=== PATIENT | female | born 1990 ===

== ENCOUNTER 2021-12-02 10:04 | Inpatient (IN) | payer SELFPAY ==
--- NOTE | 2021-12-02 13:55 | Ultrasound Report ---
Limited OB ultrasound OB biophysical profile INDICATION: Evaluate and well-being FINDINGS: Single live intrauterine in cephalic position. MARGARET measures 4.2 cm which is sligh tly decreased. Biophysical profile 8 out of 8. heart rate 135. IMPRESSION: Normal biophysical profile measuring 8 out of 8. Normal heart rate. MARGARET measures 4.2 cm. Signer Name: Erik Miller MD Signed: 12/02/2021 1:50 PM Workstation Name: [id number]
--- NOTE | 2021-12-02 13:55 | Ultrasound Report ---
Limited OB ultrasound OB biophysical profile INDICATION: Evaluate and well-being FINDINGS: Single live intrauterine in cephalic position. MARGARET measures 4.2 cm which is sligh tly decreased. Biophysical profile 8 out of 8. heart rate 135. IMPRESSION: Normal biophysical profile measuring 8 out of 8. Normal heart rate. MARGARET measures 4.2 cm. Signer Name: Erik Miller MD Signed: 12/02/2021 1:50 PM Workstation Name: [id number]
[2021-12-02] MEDS ORDERED: LIDOCAINE (2%) 20 MG/1 ML VIAL 20 ML MDV INFILTRATI ONE (14:08)
[2021-12-02] MEDS ORDERED: OXYTOCIN 10 UNIT/1 ML INJ IM PRN (14:08)
[2021-12-02] MEDS ORDERED: miSOPROStol 200 MCG TAB PR PRN (14:08)
[2021-12-02] MEDS ORDERED: TERBUTALINE 1 MG/1 ML INJ SUB-Q PRN (14:08)
[2021-12-02] MEDS ORDERED: IBUPROFEN 200 MG TAB PO PRN (14:11)
[2021-12-02] MEDS ORDERED: LACTATED RINGERS 1,000 ML IV SCH (14:15)
--- NOTE | 2021-12-02 14:26 | History and Physical Report ---
History of Present Illness Date of examination: 12/02/21 Date of admission: 12/02/2021 Chief complaint: CTX History of present illness: care at [facility]. course complicated by Low BMI and Marginal Placenta Previa. Past History Past Medical History: other (Anxiety) Past Surgical History: no surgical history Family/Genetic History: other (kidney Dx: Father) Social history: no significant social history - Obstetrical History Expected Date of Delivery: 11/27/21 Actual Gestation: 40 Week(s) 5 Day(s) : 2 Spontaneous Abortions: 1 Medications and Allergies Allergies Allergy/AdvReac Type Severity Reaction Status Date / Time nitrofurantoin Allergy Rash Verified 12/02/21 11:45 [From Macrobid] Active Meds: Active Medications Acetaminophen (Acetaminophen 325 Mg Tab) 650 mg PO Q4H PRN PRN Reason: Pain, Mild (1-3) Butorphanol Tartrate (Butorphanol 2 Mg/1 Ml Inj) 1 mg IV Q2H PRN PRN Reason: Pain, Moderate(4-6) LABOR PAIN Butorphanol Tartrate (Butorphanol 2 Mg/1 Ml Inj) 2 mg IV Q2H PRN PRN Reason: Pain , Severe (7-10) Dinoprostone (Dinoprostone 10 Mg Vag Supp) 10 mg VG ONCE ONE Stop: 12/02/21 15:01 Ephedrine Sulfate (Ephedrine Sulfate 50 Mg/1 Ml Inj) 10 mg IV Q2M PRN PRN Reason: Hypotension Lactated Ringer's (Lactated Ringers) 1,000 mls @ 125 mls/hr IV DIRECT NEHA Oxytocin/Sodium Chloride (Pitocin/Ns 30 Unit/500ml) 30 units in 500 mls @ 40 mls/hr IV TITR NEHA; Protocol Ibuprofen (Ibuprofen 200 Mg Tab) 200 mg PO Q4H PRN PRN Reason: Pain, Mild (1-3) Mineral Oil (Mineral Oil 30 Ml Oral Liqd) 30 ml PO QHS PRN PRN Reason: Constipation Misoprostol (Misoprostol 200 Mcg Tab) 800 mcg SC ONCE PRN PRN Reason: Uterine Bleeding Naloxone HCl (Naloxone 0.4 Mg/1 Ml Inj) 0.1 mg IV Q2MIN PRN PRN Reason: Res Rate </= 8 or 02 SAT < 92% Ondansetron HCl (Ondansetron 4 Mg/2 Ml Inj) 4 mg IV Q8H PRN PRN Reason: Nausea And Vomiting Oxytocin (Oxytocin 10 Unit/1 Ml Inj) 10 unit IM ONCE PRN PRN Reason: Uterine Bleeding Terbutaline Sulfate (Terbutaline 1 Mg/1 Ml Inj) 0.25 mg SUB-Q ONCE PRN PRN Reason: Hyperstimulation/Hypertonicity Review of Systems All systems: negative - Vital Signs Vital signs: Vital Signs Pulse BP Pulse Ox 96 H 111/76 100 12/02/21 10:24 12/02/21 10:24 12/02/21 10:24 Temp Pulse Resp BP Pulse Ox 98.5 F 94 H 16 111/76 100 12/02/21 10:25 12/02/21 14:04 12/02/21 10:25 12/02/21 10:25 12/02/21 14:04 - Physical Exam Breasts: Positive: normal Cardiovascular: Regular rate Lungs: Positive: Clear to auscultation, Normal air movement Abdomen: Positive: normal appearance, soft, normal bowel sounds Genitourinary (Female): Positive: normal external genitalia, normal perenium Vagina: Positive: normal moisture Uterus: Positive: enlarged Anus/Rectum: Positive: normal perianal skin - Obstetrical FHR: category 1 Uterine Contraction Monitor Mode: External Cervical Dilatation: 1 (tx; Intact) Cervical Effacement Percentage: 40 station: -3 Uterine Contraction Pattern: Regular Uterine Tone Measurement Phase: Resting Uterine Contraction Intensity: Moderate Results All other labs normal. Assessment and Plan A: IUP @ 40 5/7 Weeks Category I Tracing Oligohydramnios (4.7) r/o Placenta Previa GBS Negative P: Follow Routine Admission Orders Ultrasound for placenta location; if Previa is resolved may proceed with Cervidil Induction
[2021-12-02 14:33] LABS: Hematocrit 39.6 % (30.3-42.9); Hemoglobin 13.5 gm/dl (10.1-14.3); Mean Corpuscular HGB Conc 34 % (30-34); Mean Corpuscular Volume 91 fl (79-97); Platelet Count 177 K/mm3 (140-440); Red Blood Count 4.34 M/mm3 (3.65-5.03); Red Cell Distribution Width 14.7 % (13.2-15.2)
[2021-12-02] MEDS ORDERED: ONDANSETRON 4 MG/2 ML INJ IV PRN (15:00)
[2021-12-02] MEDS ORDERED: NALOXONE 0.4 MG/1 ML INJ IV PRN (15:00)
[2021-12-02] MEDS ORDERED: BUTORPHANOL 2 MG/1 ML INJ IV PRN ×2 (15:00)
[2021-12-02] MEDS ORDERED: ePHEDrine SULFATE 50 MG/1 ML INJ IV PRN (15:00)
[2021-12-02] MEDS ORDERED: DINOPROSTONE 10 MG VAG SUPP VG ONE (15:00)
[2021-12-02] MEDS ORDERED: OXYTOCIN DRIP 30 UNITS/500 ML BAG IV SCH (15:00)
[2021-12-02] MEDS ORDERED: MINERAL OIL 30 ML ORAL LIQD PO PRN (22:00)
--- NOTE | 2021-12-03 03:59 | Ultrasound Report ---
US OB limited INDICATION / CLINICAL INFORMATION: PLACENTA LOCATION COMPARISON: Biophysical profile 12/02/2021. TECHNIQUE: Using a transcutaneous probe, multiple grayscale, color Doppler, and spectral Doppler imag es of the uterus and fetus were captured and stored. FINDINGS: Estimation of gestational age based on LMP is 40 weeks 5 days. A single cephalic fetus is present with heart rate of 138 bpm. An anterior grade 2 placenta is demonstrated. No ultrasound abnormality of the placenta with placenta l margin is demonstrated on provided images. IMPRESSION: 1. Anterior placenta no acute pathology. Signer Name: Gama Pelayo II, MD Signed: 12/03/2021 3:55 AM Workstation Name: [id number]
[2021-12-03] MEDS ORDERED: OXYTOCIN DRIP 30 UNITS/500 ML BAG IV SCH ×2 (08:46→11:19)
[2021-12-03] MEDS ORDERED: LIDOCAINE (2%) 20 MG/1 ML VIAL 20 ML MDV INFILTRATI ONE (09:47)
[2021-12-03] MEDS ORDERED: fentaNYL-BUPIV 2 MCG/ML-0.125% 200 MCG/100 ML BAG EPIDURAL ONE (09:52)
[2021-12-03] MEDS ORDERED: NALOXONE 0.4 MG/1 ML INJ IV PRN (10:16)
--- NOTE | 2021-12-03 10:19 | Anesthesia Day of Surgery ---
Anesthesia Day of Surgery - Day of Surgery Patient Examined: Yes Patient H&P Reviewed: Yes Patient is NPO: Yes Beta Blockers: No Cardiac Clearance: No Pulmonary Clearance: No
--- NOTE | 2021-12-03 10:19 | Anesthesia Consultation ---
Anesthesia Consult and Med Hx Date of service: 12/03/21 - Airway Anesthetic Teeth Evaluation: Good ROM Head & Neck: Adequate Mental/Hyoid Distance: Adequate Mallampati Class: Class II Intubation Access Assessment: Probably Good - Pulmonary Exam CTA: Yes - Cardiac Exam Cardiac Exam: RRR - Pre-Operative Health Status ASA Pre-Surgery Classification: ASA2 Proposed Anesthetic Plan: Epidural - Pulmonary Hx Smoking: No Hx Asthma: No Hx Respiratory Symptoms: No SOB: No COPD: No Home Oxygen Therapy: No Hx Pneumonia: No Hx Sleep Apnea: No - Cardiovascular System Hx Hypertension: No Hx Coronary Artery Disease: No Hx Heart Attack/AMI: No Hx Angina: No Hx Percutaneous Transluminal Coronary Angioplasty (PTCA): No Hx Cardia Arrhythmia: No Hx Pacemaker: No Hx Internal Defibrillator: No Hx Valvular Heart Disease: No Hx Heart Murmur: No Hx Peripheral Vascular Disease: No - Central Nervous System Hx Seizures: No CVA: No Hx Back Pain: No Hx Psychiatric Problems: No - Gastrointestinal Hx Ulcer: No Hx Gastroesophageal Reflux Disease: Yes (During ) - Endocrine Hx Renal Disease: No Hx End Stage Renal Disease: No Hx Cirrhosis: No Hx Liver Disease: No Hx Insulin Dependent Diabetes: No Hx Non-Insulin Dependent Diabetes: No Hx Thyroid Disease: No Hx Hypothyroidism: No Hx Hyperthyroidism: No - Hematic Hx Anemia: Yes Hx Sickle Cell Disease: No - Other Systems Hx Alcohol Use: No Hx Substance Use: No Hx Cancer: No Hx Obesity: No
--- NOTE | 2021-12-03 10:23 | Progress Note ---
Labor Epidural - Labor Epidural Start Time: 09:55 Stop Time: 10:05 Performed by:: AMBER GRIER Procedure: Patient is requesting epidural for labor pain. H&P and labs reviewed. Procedure explained, questions answered, consent obtained. Patient placed in sitting position with monitors applied. Timeout performed immediately before start of procedure. Prep/drape in usual sterile fashion. Skin localized 3 mL 1% lidocaine at L[3]-L[4] x 1 attempt. 17-gauge Touhy epidural needle advanced to AMOR with saline at [7] cm. No blood/CSF noted via epidural needle. Epidural catheter advanced to [12] cm. Negative aspiration for blood and CSF via catheter, negative response to test dose 3 ml 1.5% lidocaine w/ Epi. Sterile dressing applied followed by tape reinforcement. Patient tolerated procedure well. No immediate complications noted.
[2021-12-03] MEDS ORDERED: ePHEDrine SULFATE 50 MG/1 ML INJ IV PRN (10:30)
[2021-12-03] MEDS: fentaNYL-BUPIV 2 MCG/ML-0.125% 200 MCG/100 ML BAG EPIDURAL SCH ×2 (11:12→19:22)
[2021-12-03] MEDS ORDERED: OXYTOCIN DRIP 30,000 MILLIUNITS/500 ML BAG IV ONE (11:19)
--- NOTE | 2021-12-03 14:13 | Progress Note ---
Assessment and Plan A: LOW MARGARET 4.2CM P: IOL CONTINUOUS EFM/TOCO VITAL PER UNIT PROTOCOL ANTICIPATED DELV Subjective - Subjective Date of service: 12/03/21 (1010) Principal diagnosis: IOL LOW MARGARET 4.2CM Objective - Vital Signs Vital Signs: Vital Signs - 12hr 12/03/21 12/03/21 12/03/21 02:08 02:13 02:18 Temperature Pulse Rate 83 95 H 99 H Respiratory Rate Blood Pressure O2 Sat by Pulse 99 98 98 Oximetry O2 Sat by Pulse Oximetry [ Bilateral Throughout] 12/03/21 12/03/21 12/03/21 02:23 02:28 02:33 Temperature Pulse Rate 90 95 H 93 H Respiratory Rate Blood Pressure O2 Sat by Pulse 98 97 98 Oximetry O2 Sat by Pulse Oximetry [ Bilateral Throughout] 12/03/21 12/03/21 12/03/21 02:38 02:39 02:43 Temperature Pulse Rate 110 H 115 H 93 H Respiratory Rate Blood Pressure 101/63 O2 Sat by Pulse 98 100 Oximetry O2 Sat by Pulse Oximetry [ Bilateral Throughout] 12/03/21 12/03/21 12/03/21 02:48 02:53 02:58 Temperature Pulse Rate 90 91 H 87 Respiratory Rate Blood Pressure O2 Sat by Pulse 98 98 98 Oximetry O2 Sat by Pulse Oximetry [ Bilateral Throughout] 12/03/21 12/03/21 12/03/21 03:03 03:08 03:13 Temperature 99.8 F H Pulse Rate 102 H 101 H 99 H Respiratory 18 Rate Blood Pressure O2 Sat by Pulse 100 99 97 Oximetry O2 Sat by Pulse Oximetry [ Bilateral Throughout] 12/03/21 12/03/21 12/03/21 03:18 03:23 03:28 Temperature Pulse Rate 97 H 104 H 112 H Respiratory Rate Blood Pressure O2 Sat by Pulse 96 97 98 Oximetry O2 Sat by Pulse Oximetry [ Bilateral Throughout] 12/03/21 12/03/21 12/03/21 03:33 03:38 03:39 Temperature Pulse Rate 110 H 94 H 101 H Respiratory Rate Blood Pressure 112/69 O2 Sat by Pulse 98 98 Oximetry O2 Sat by Pulse Oximetry [ Bilateral Throughout] 12/03/21 12/03/21 12/03/21 03:43 03:48 03:52 Temperature Pulse Rate 108 H 91 H 90 Respiratory Rate Blood Pressure O2 Sat by Pulse 98 97 92 Oximetry O2 Sat by Pulse Oximetry [ Bilateral Throughout] 12/03/21 12/03/21 12/03/21 03:53 03:58 04:03 Temperature Pulse Rate 103 H 97 H 114 H Respiratory Rate Blood Pressure O2 Sat by Pulse 95 97 97 Oximetry O2 Sat by Pulse Oximetry [ Bilateral Throughout] 12/03/21 12/03/21 12/03/21 04:08 04:13 04:17 Temperature Pulse Rate 101 H 113 H 104 H Respiratory Rate Blood Pressure O2 Sat by Pulse 97 97 94 Oximetry O2 Sat by Pulse Oximetry [ Bilateral Throughout] 12/03/21 12/03/21 12/03/21 04:18 04:23 04:28 Temperature Pulse Rate 110 H 101 H 95 H Respiratory Rate Blood Pressure O2 Sat by Pulse 97 97 98 Oximetry O2 Sat by Pulse Oximetry [ Bilateral Throughout] 12/03/21 12/03/21 12/03/21 04:33 04:38 04:39 Temperature Pulse Rate 99 H 110 H 102 H Respiratory Rate Blood Pressure 96/62 O2 Sat by Pulse 97 97 Oximetry O2 Sat by Pulse Oximetry [ Bilateral Throughout] 12/03/21 12/03/21 12/03/21 04:43 04:48 04:53 Temperature Pulse Rate 97 H 91 H 99 H Respiratory Rate Blood Pressure O2 Sat by Pulse 98 97 98 Oximetry O2 Sat by Pulse Oximetry [ Bilateral Throughout] 12/03/21 12/03/21 12/03/21 04:58 05:03 05:08 Temperature Pulse Rate 93 H 101 H 86 Respiratory Rate Blood Pressure O2 Sat by Pulse 99 97 97 Oximetry O2 Sat by Pulse Oximetry [ Bilateral Throughout] 12/03/21 12/03/21 12/03/21 05:13 05:18 05:23 Temperature Pulse Rate 102 H 98 H 106 H Respiratory Rate Blood Pressure O2 Sat by Pulse 99 99 99 Oximetry O2 Sat by Pulse Oximetry [ Bilateral Throughout] 12/03/21 12/03/21 12/03/21 05:28 05:33 05:38 Temperature Pulse Rate 98 H 101 H 99 H Respiratory Rate Blood Pressure O2 Sat by Pulse 98 98 98 Oximetry O2 Sat by Pulse Oximetry [ Bilateral Throughout] 12/03/21 12/03/21 12/03/21 05:39 05:44 05:49 Temperature Pulse Rate 96 H 107 H 85 Respiratory Rate Blood Pressure 109/69 O2 Sat by Pulse 98 98 Oximetry O2 Sat by Pulse Oximetry [ Bilateral Throughout] 12/03/21 12/03/21 12/03/21 05:54 05:59 06:04 Temperature Pulse Rate 117 H 116 H 105 H Respiratory Rate Blood Pressure O2 Sat by Pulse 98 99 100 Oximetry O2 Sat by Pulse Oximetry [ Bilateral Throughout] 12/03/21 12/03/21 12/03/21 06:09 06:14 06:19 Temperature Pulse Rate 98 H 89 109 H Respiratory Rate Blood Pressure O2 Sat by Pulse 98 99 98 Oximetry O2 Sat by Pulse Oximetry [ Bilateral Throughout] 12/03/21 12/03/21 12/03/21 06:24 06:29 06:34 Temperature Pulse Rate 86 107 H 120 H Respiratory Rate Blood Pressure O2 Sat by Pulse 98 97 97 Oximetry O2 Sat by Pulse Oximetry [ Bilateral Throughout] 12/03/21 12/03/21 12/03/21 06:39 06:44 06:49 Temperature Pulse Rate 118 H 94 H 112 H Respiratory Rate Blood Pressure 100/64 O2 Sat by Pulse 97 97 97 Oximetry O2 Sat by Pulse Oximetry [ Bilateral Throughout] 12/03/21 12/03/21 12/03/21 06:54 06:59 07:04 Temperature Pulse Rate 92 H 101 H 94 H Respiratory Rate Blood Pressure O2 Sat by Pulse 98 97 98 Oximetry O2 Sat by Pulse Oximetry [ Bilateral Throughout] 12/03/21 12/03/21 12/03/21 07:12 07:16 07:17 Temperature Pulse Rate 83 98 H 111 H Respiratory Rate Blood Pressure 101/65 O2 Sat by Pulse 96 99 Oximetry O2 Sat by Pulse Oximetry [ Bilateral Throughout] 12/03/21 12/03/21 12/03/21 07:22 07:27 07:32 Temperature Pulse Rate 101 H 84 86 Respiratory Rate Blood Pressure O2 Sat by Pulse 97 98 98 Oximetry O2 Sat by Pulse Oximetry [ Bilateral Throughout] 12/03/21 12/03/21 12/03/21 07:37 07:42 07:47 Temperature Pulse Rate 93 H 94 H 91 H Respiratory Rate Blood Pressure O2 Sat by Pulse 99 99 98 Oximetry O2 Sat by Pulse Oximetry [ Bilateral Throughout] 12/03/21 12/03/21 12/03/21 07:52 07:57 08:02 Temperature Pulse Rate 85 91 H 87 Respiratory Rate Blood Pressure O2 Sat by Pulse 98 98 98 Oximetry O2 Sat by Pulse Oximetry [ Bilateral Throughout] 12/03/21 12/03/21 12/03/21 08:07 08:12 08:17 Temperature Pulse Rate 91 H 100 H 94 H Respiratory Rate Blood Pressure O2 Sat by Pulse 99 98 98 Oximetry O2 Sat by Pulse Oximetry [ Bilateral Throughout] 12/03/21 12/03/21 12/03/21 08:22 08:27 08:32 Temperature Pulse Rate 96 H 90 86 Respiratory Rate Blood Pressure O2 Sat by Pulse 97 98 98 Oximetry O2 Sat by Pulse Oximetry [ Bilateral Throughout] 12/03/21 12/03/21 12/03/21 08:36 08:37 08:42 Temperature 98.2 F Pulse Rate 87 87 Respiratory 16 Rate Blood Pressure O2 Sat by Pulse 98 99 Oximetry O2 Sat by Pulse 100 Oximetry [ Bilateral Throughout] 12/03/21 12/03/21 12/03/21 08:47 08:52 08:57 Temperature Pulse Rate 105 H 118 H 101 H Respiratory Rate Blood Pressure O2 Sat by Pulse 98 99 99 Oximetry O2 Sat by Pulse Oximetry [ Bilateral Throughout] 12/03/21 12/03/21 12/03/21 09:02 09:07 09:12 Temperature Pulse Rate 96 H 96 H 99 H Respiratory Rate Blood Pressure O2 Sat by Pulse 100 99 99 Oximetry O2 Sat by Pulse Oximetry [ Bilateral Throughout] 12/03/21 12/03/21 12/03/21 09:17 09:22 09:27 Temperature Pulse Rate 102 H 93 H 100 H Respiratory Rate Blood Pressure O2 Sat by Pulse 99 100 98 Oximetry O2 Sat by Pulse Oximetry [ Bilateral Throughout] 12/03/21 12/03/21 12/03/21 09:31 09:32 09:37 Temperature Pulse Rate 83 101 H 108 H Respiratory Rate Blood Pressure O2 Sat by Pulse 92 98 98 Oximetry O2 Sat by Pulse Oximetry [ Bilateral Throughout] 12/03/21 12/03/21 12/03/21 09:48 09:53 09:54 Temperature Pulse Rate 105 H 94 H 93 H Respiratory Rate Blood Pressure 121/71 O2 Sat by Pulse 98 98 Oximetry O2 Sat by Pulse Oximetry [ Bilateral Throughout] 12/03/21 12/03/21 12/03/21 09:57 09:58 09:59 Temperature Pulse Rate 96 H 101 H 98 H Respiratory Rate Blood Pressure 110/65 109/64 O2 Sat by Pulse 98 Oximetry O2 Sat by Pulse Oximetry [ Bilateral Throughout] 12/03/21 12/03/21 12/03/21 10:03 10:04 10:05 Temperature Pulse Rate 108 H 120 H 91 H Respiratory Rate Blood Pressure 97/66 O2 Sat by Pulse 98 92 Oximetry O2 Sat by Pulse Oximetry [ Bilateral Throughout] 12/03/21 12/03/21 12/03/21 10:06 10:07 10:08 Temperature Pulse Rate 107 H 111 H 102 H Respiratory Rate Blood Pressure 102/66 103/67 O2 Sat by Pulse 98 Oximetry O2 Sat by Pulse Oximetry [ Bilateral Throughout] 12/03/21 12/03/21 12/03/21 10:13 10:15 10:16 Temperature Pulse Rate 110 H 106 H 110 H Respiratory Rate Blood Pressure 110/64 O2 Sat by Pulse 98 87 Oximetry O2 Sat by Pulse Oximetry [ Bilateral Throughout] 12/03/21 12/03/21 12/03/21 10:18 10:21 10:23 Temperature Pulse Rate 108 H 92 H 104 H Respiratory Rate Blood Pressure 107/65 117/75 O2 Sat by Pulse 98 99 Oximetry O2 Sat by Pulse Oximetry [ Bilateral Throughout] 12/03/21 12/03/21 12/03/21 10:28 10:33 10:37 Temperature Pulse Rate 90 92 H 84 Respiratory Rate Blood Pressure 117/69 O2 Sat by Pulse 99 98 Oximetry O2 Sat by Pulse Oximetry [ Bilateral Throughout] 12/03/21 12/03/21 12/03/21 10:38 10:43 10:48 Temperature Pulse Rate 89 92 H 105 H Respiratory Rate Blood Pressure O2 Sat by Pulse 100 99 99 Oximetry O2 Sat by Pulse Oximetry [ Bilateral Throughout] 12/03/21 12/03/21 12/03/21 10:52 10:53 10:58 Temperature Pulse Rate 82 94 H 105 H Respiratory Rate Blood Pressure 110/70 O2 Sat by Pulse 99 100 Oximetry O2 Sat by Pulse Oximetry [ Bilateral Throughout] 12/03/21 12/03/21 12/03/21 11:00 11:03 11:06 Temperature Pulse Rate 91 H 104 H 86 Respiratory Rate Blood Pressure 120/74 O2 Sat by Pulse 94 99 Oximetry O2 Sat by Pulse Oximetry [ Bilateral Throughout] 12/03/21 12/03/21 12/03/21 11:08 11:13 11:18 Temperature Pulse Rate 96 H 94 H 77 Respiratory Rate Blood Pressure O2 Sat by Pulse 99 99 99 Oximetry O2 Sat by Pulse Oximetry [ Bilateral Throughout] 12/03/21 12/03/21 12/03/21 11:21 11:23 11:28 Temperature Pulse Rate 87 81 98 H Respiratory Rate Blood Pressure 106/64 O2 Sat by Pulse 98 100 Oximetry O2 Sat by Pulse Oximetry [ Bilateral Throughout] 12/03/21 12/03/21 12/03/21 11:33 11:36 11:38 Temperature Pulse Rate 103 H 77 97 H Respiratory Rate Blood Pressure 122/75 O2 Sat by Pulse 99 98 Oximetry O2 Sat by Pulse Oximetry [ Bilateral Throughout] 12/03/21 12/03/21 12/03/21 11:43 11:48 11:52 Temperature Pulse Rate 95 H 99 H 84 Respiratory Rate Blood Pressure 119/76 O2 Sat by Pulse 99 99 Oximetry O2 Sat by Pulse Oximetry [ Bilateral Throughout] 12/03/21 12/03/21 12/03/21 11:53 11:58 12:03 Temperature Pulse Rate 100 H 100 H 87 Respiratory Rate Blood Pressure O2 Sat by Pulse 99 99 98 Oximetry O2 Sat by Pulse Oximetry [ Bilateral Throughout] 12/03/21 12/03/21 12/03/21 12:06 12:08 12:09 Temperature 98 F Pulse Rate 115 H 88 Respiratory 16 Rate Blood Pressure 114/78 O2 Sat by Pulse 98 Oximetry O2 Sat by Pulse Oximetry [ Bilateral Throughout] 12/03/21 12/03/21 12/03/21 12:13 12:18 12:21 Temperature Pulse Rate 81 98 H 86 Respiratory Rate Blood Pressure 118/75 O2 Sat by Pulse 99 99 Oximetry O2 Sat by Pulse Oximetry [ Bilateral Throughout] 12/03/21 12/03/21 12/03/21 12:23 12:28 12:33 Temperature Pulse Rate 92 H 76 106 H Respiratory Rate Blood Pressure O2 Sat by Pulse 99 99 99 Oximetry O2 Sat by Pulse Oximetry [ Bilateral Throughout] 12/03/21 12/03/21 12/03/21 12:37 12:38 12:43 Temperature Pulse Rate 81 105 H 84 Respiratory Rate Blood Pressure 118/72 O2 Sat by Pulse 100 98 Oximetry O2 Sat by Pulse Oximetry [ Bilateral Throughout] 12/03/21 12/03/21 12/03/21 12:48 12:51 12:53 Temperature Pulse Rate 114 H 80 80 Respiratory Rate Blood Pressure 117/74 O2 Sat by Pulse 99 99 Oximetry O2 Sat by Pulse Oximetry [ Bilateral Throughout] 12/03/21 12/03/21 12/03/21 12:58 13:03 13:06 Temperature Pulse Rate 83 81 75 Respiratory Rate Blood Pressure 122/78 O2 Sat by Pulse 99 99 Oximetry O2 Sat by Pulse Oximetry [ Bilateral Throughout] 12/03/21 12/03/21 12/03/21 13:08 13:13 13:18 Temperature Pulse Rate 103 H 92 H 94 H Respiratory Rate Blood Pressure O2 Sat by Pulse 99 98 99 Oximetry O2 Sat by Pulse Oximetry [ Bilateral Throughout] 12/03/21 12/03/21 12/03/21 13:20 13:23 13:28 Temperature Pulse Rate 77 87 83 Respiratory Rate Blood Pressure 114/71 O2 Sat by Pulse 99 98 Oximetry O2 Sat by Pulse Oximetry [ Bilateral Throughout] 12/03/21 12/03/21 12/03/21 13:33 13:38 13:43 Temperature Pulse Rate 77 80 72 Respiratory Rate Blood Pressure O2 Sat by Pulse 100 100 99 Oximetry O2 Sat by Pulse Oximetry [ Bilateral Throughout] 12/03/21 12/03/21 12/03/21 13:48 13:53 13:58 Temperature Pulse Rate 81 78 74 Respiratory Rate Blood Pressure O2 Sat by Pulse 98 99 98 Oximetry O2 Sat by Pulse Oximetry [ Bilateral Throughout] 12/03/21 14:03 Temperature Pulse Rate 77 Respiratory Rate Blood Pressure O2 Sat by Pulse 99 Oximetry O2 Sat by Pulse Oximetry [ Bilateral Throughout] - Exam Vulva: both: normal FHR: category 1 FHR comments: 130 Uterine Contraction Monitor Mode: External Cervical Dilatation: 3 Cervical Effacement Percentage: 90 station: -3 Uterine Contraction Pattern: Irregular - Labs Labs: Laboratory Results - last 24 hr 12/02/21 12/02/21 12/03/21 14:10 14:10 09:25 WBC 9.4 RBC 4.34 Hgb 13.5 Hct 39.6 MCV 91 MCH 31 MCHC 34 RDW 14.7 Plt Count 177 Coronavirus (PCR) Negative Blood Type O POSITIVE Antibody Screen Negative
--- NOTE | 2021-12-03 14:29 | Event Note ---
Date: 12/03/21 (929) VARIABLE DECELS NOTED WITH EARLY. VE 6.5/90/2. PITOCIN AT 16MU NOW OFF.
--- NOTE | 2021-12-03 17:44 | Event Note ---
Date: 12/03/21 (1729) REEVALUATING PATIENT, VE; STILL 6-/-2, SOME CERVICAL SWELLING, AND EXTERNAL LABIA SWELLING NOTED THIS EXAM. STILL WITH BLOODY SHOW, AROM CLEAR. LIGHT PINK TINGE OF URINE NOTED. RN STABILIZED SALDANA, SINCE WAS BEING PULLED.
--- NOTE | 2021-12-03 21:25 | Event Note ---
Date: 12/03/21 Re-evaluated pt. VE /-1. cat 2 tracing with occ variables pos variability and pos accels.
[2021-12-03] MEDS: ACETAMINOPHEN 325 MG TAB PO PRN (23:43)
--- NOTE | 2021-12-04 02:08 | Event Note ---
Date: 12/04/21 (0115) VE 8.5/80-100/-1 pt's right is 100% effaced, left side is 80%. Dr. Freeman made aware.
[2021-12-04] MEDS: fentaNYL-BUPIV 2 MCG/ML-0.125% 200 MCG/100 ML BAG EPIDURAL SCH (03:00)
--- NOTE | 2021-12-04 07:18 | Event Note ---
Date: 12/04/21 (0600) Pt now complete/0, attempted to push with patient, fetus head is ROP. attempted side to side pushing, hands and knees. pt became tired. will allow to labor down. currently high fowlers with legs lowered. pushed x1hr
[2021-12-04] MEDS: ACETAMINOPHEN 325 MG TAB PO PRN (08:50)
[2021-12-04 12:14] LABS: Cord Arterial Blood HCO3 21.1
[2021-12-04 12:15] LABS: Cord Art Bld Carbxyhemoglobin 0.3; Cord Art Bld Methemoglobin 1.7 mmHg; Cord Arterial Oxyhemoglobin 4.5
--- NOTE | 2021-12-04 12:25 | Procedure Note ---
OB Delivery Note - Delivery Date of Delivery: 12/04/21 Surgeon: DANIELLE SANZ Estimated blood loss: other (350cc) - Vaginal Delivery presentation: vertex Delivery position: OA (ELIF) Intrapartum events: meconium (very thick), other(please specify) (Oligohydramnios, NO previa) Delivery induction: cervidil Delivery augmentation: rupture of membranes, pitocin Delivery monitor: external FHT, external uterine Route of delivery: vacuum extraction Indicators for instrumentation: nonreassuring FHR tracing Delivery placenta: spontaneous Delivery cord: 3 umbilical vessels Episiotomy: mediolateral (right ) Delivery laceration: 3rd degree (extended to level A of 3rd degree laceration) Delivery repair: vicryl, chromic Anesthesia: epidural Delivery comments: Pt complete and allowed to labor down for approx 2hrs, pt encouraged to push, with partner to bedside, pt exhausted and FHR down the 90-100's, pt offered vacuum assisted delivery with the risks, benefits and alternatives and baby in ELIF presentation. Right mediolateral episiotomy done and pt allowed to push some more [id number] without . Pt accepted vaccuum and single vacuum application done at +3 station, ELIF and pressure of 500mmHg without pop off using Kiwi device in the green zone. Placenta delivered completely with 3vessel cord and very thick meconium. NICU present for delivery with respiratory personnel. Pt sustained extension minimally to level A, third degree laceration and rectovag exam sphincter mostly intact. 2-0 Vicryl figure of 8 suture x1 used to build up perineum including the portion of that was bruised just above the sphincter. Remainder of the episiotomy closed with 2-0 chromic running locked suture and skin with 2-0 chromic subcutaneously. Nurse now states that pt felt warm and ice packs placed in her axilla, however she did not take temp and that time and baby now 101.9. NICU notified that I will treat mom for 24hrs with broad spectrum antibiotics. Umbilical artery blood gas sent and same with pH 7.14 and BE -8.7 and placenta sent to pathology. APGARS 7/8 - Infant A at 1 minute: 7 at 5 minutes: 8 Infant Gender: Male (wt 3630g, very thick meconium stained fluid)
[2021-12-04] MEDS ORDERED: BENZOCAINE/MENTHOL 20/0.5% TOP SPRAY 56 GM TP PRN (13:00)
[2021-12-04] MEDS ORDERED: oxyCODONE /ACETAMINOPHEN 5-325MG TAB PO PRN (13:00)
[2021-12-04] MEDS ORDERED: miSOPROStol 100 MCG TAB PR PRN (13:00)
[2021-12-04] MEDS ORDERED: PROMETHAZINE 25 MG TAB PO PRN (13:00)
[2021-12-04] MEDS ORDERED: ONDANSETRON 4 MG/2 ML INJ IV PRN (13:00)
[2021-12-04] MEDS ORDERED: ACETAMINOPHEN 325 MG TAB PO PRN ×2 (13:00→13:11)
[2021-12-04] MEDS ORDERED: LANOLIN/ZINC/DIMETHICONE (LANSINOH) 7 GM TP PRN (13:00)
[2021-12-04] MEDS ORDERED: PROMETHAZINE 25 MG RECT SUPP PR PRN (13:00)
[2021-12-04] MEDS ORDERED: MAGNESIUM HYDROXIDE (MOM) ORAL LIQD UDC PO PRN (13:00)
[2021-12-04] MEDS ORDERED: OXYTOCIN DRIP 30 UNITS/500 ML BAG IV SCH (13:00)
[2021-12-04] MEDS ORDERED: WITCH HAZEL/ GLYCERIN PAD TP PRN (13:00)
[2021-12-04] MEDS ORDERED: HYDROCORTISONE 25 MG RECTAL SUPP PR PRN (13:00)
[2021-12-04] MEDS ORDERED: LOPERAMIDE 2 MG CAP PO PRN (13:00)
[2021-12-04] MEDS ORDERED: diphenhydrAMINE 25 MG CAP PO PRN (13:00)
[2021-12-04] MEDS ORDERED: miSOPROStol 200 MCG TAB PR PRN (13:11)
[2021-12-04] MEDS ORDERED: fentaNYL 100 MCG/2 ML INJ IV PRN (13:11)
[2021-12-04] MEDS ORDERED: NalbUPHINE 10 MG/1 ML INJ IV PRN (13:11)
[2021-12-04] MEDS ORDERED: GENTAMICIN/NS 100 MG/100 ML 100 MG/100 ML BAG IV ONE ×2 (14:00→20:30)
[2021-12-04] MEDS ORDERED: SODIUM CHLORIDE 0.9% 250ML 250 ML ONE (17:47)
[2021-12-04] MEDS: AMPICILLIN/NS 2 GM/100 ML 2 GM/100 ML BAG IV SCH (17:51)
[2021-12-04] MEDS: IBUPROFEN 800 MG TAB PO SCH (19:15)
--- NOTE | 2021-12-04 20:01 | Post Anesthesia Evaluation ---
- Post Anesthesia Evaluation Patient Participated: Yes Airway Patent: Yes Stable Respiratory Function: Yes Nausea/Vomiting: No Temp > 96.8F: Yes Pain Manageable: Yes Adequeate Hydration: Yes Anesthesia Complications: No Block Receding Appropriately: Yes Patient on Ventilator: No
[2021-12-05] MEDS: IBUPROFEN 800 MG TAB PO SCH ×4 (00:35→23:03)
[2021-12-05] MEDS: DOCUSATE SODIUM 100 MG CAP PO SCH ×3 (00:35→23:03)
[2021-12-05] MEDS: AMPICILLIN/NS 2 GM/100 ML 2 GM/100 ML BAG IV SCH ×3 (00:36→13:15)
[2021-12-05 06:10] LABS: Hematocrit 33.4 % (30.3-42.9); Mean Corpuscular HGB Conc 33 % (30-34); Mean Corpuscular Volume 92 fl (79-97); Platelet Count 131 K/mm3 (140-440); Red Blood Count 3.63 M/mm3 (3.65-5.03); Red Cell Distribution Width 15.1 % (13.2-15.2)
[2021-12-05] MEDS: PRENATAL VIT27-FE FUMARATE-FOLIC ACID VIT TAB PO SCH (10:21)
--- NOTE | 2021-12-05 21:09 | Progress Note ---
Assessment and Plan PPD#1 for VAVD doing well 1. Routine postop care Subjective Date of service: 12/05/21 Principal diagnosis: PPD#1 for VAVD Interval history: pt has no complaints and is breast feeding. vag bleed less than period. pt is passing gas well and voiding without difficulty Objective - Constitutional Vitals: Vital Signs - 12hr 12/05/21 12/05/21 12:43 19:29 Temperature 97.6 F 97.9 F Pulse Rate 79 77 Respiratory 18 18 Rate Blood Pressure 95/56 96/51 O2 Sat by Pulse 98 100 Oximetry General appearance: Present: no acute distress - Neck Neck: normal ROM - Respiratory Respiratory effort: normal - Breasts Breasts: deferred - Cardiovascular Rhythm: regular Extremities: No edema - Gastrointestinal General gastrointestinal: Present: soft, non-tender - Genitourinary Female genitourinary: other (Labia wnl without swelling with sutures in place, lochia small; fundus firm 1cm below umbilicus) - Neurologic Neurologic: moves all extremities - Psychiatric Psychiatric: cooperative - Labs CBC & Chem 7: 12/05/21 05:52 Labs: Abnormal lab results 12/05/21 Range/Units 05:52 WBC 13.9 H (4.5-11.0) K/mm3 RBC 3.63 L (3.65-5.03) M/mm3 Plt Count 131 L (140-440) K/mm3 Medications & Allergies - Medications Allergies/Adverse Reactions: Allergies nitrofurantoin [From Macrobid] Allergy (Verified 12/02/21 11:45) Rash Home Medications: Home Medications Medication Instructions Recorded Confirmed Last Taken Type Vit No.179/Iron/Folic 1 each PO DAILY 12/02/21 12/02/21 12/01/21 09:00 History [ Tablet] Active Medications: Generic Name Dose Route Start Last Admin Trade Name Freq PRN Reason Stop Dose Admin Acetaminophen 650 mg 12/02/21 15:00 12/04/21 08:50 Acetaminophen 325 Mg Tab PO 650 mg Q4H PRN Administration Pain, Mild (1-3) Acetaminophen 650 mg 12/04/21 13:00 Acetaminophen 325 Mg Tab PO Q4H PRN Pain MILD(1-3)/Fever >100.5/ONTIVEROS Acetaminophen 650 mg 12/04/21 13:11 Acetaminophen 325 Mg Tab PO Q4H PRN Pain, Mild (1-3) Benzocaine/Menthol 1 spray 12/04/21 13:00 Benzocaine/Menthol 20/0.5% Top [place] 56 Gm TP PRN PRN Episiotomy Pain Bisacodyl 10 mg 12/04/21 13:00 Bisacodyl 10 Mg Rect Supp RI BID PRN Constipation Diphenhydramine HCl 25 mg 12/04/21 13:00 Diphenhydramine 25 Mg Cap PO Q6H PRN Itching Docusate Sodium 100 mg 12/04/21 22:00 12/05/21 10:21 Docusate Sodium 100 Mg Cap PO 100 mg BID NEHA Administration Fentanyl 100 mcg 12/04/21 13:11 Fentanyl 100 Mcg/2 Ml Inj IV Q2H PRN Pain,Severe (7-10) LABOR PAIN Hydrocortisone Acetate 25 mg 12/04/21 13:00 Hydrocortisone 25 Mg Rectal Supp RI BID PRN Hemorrhoids Lactated Ringer's 1,000 mls @ 125 mls/hr 12/02/21 14:15 12/02/21 19:17 Lactated Ringers IV 125 mls/hr DIRECT NEHA Administration Oxytocin/Sodium Chloride 30 units in 500 mls @ 4 mls/hr 12/03/21 11:19 12/04/21 04:48 Pitocin/Ns 30 Unit/500ml IV 6 ml/hr TITR NEHA 6 mls/hr Titration Protocol Oxytocin/Sodium Chloride 30 units in 500 mls @ 40 mls/hr 12/04/21 13:00 Pitocin/Ns 30 Unit/500ml IV TITR NEHA Protocol Ibuprofen 800 mg 12/04/21 13:00 12/05/21 15:05 Ibuprofen 800 Mg Tab PO Not Given Q6H NEHA Loperamide HCl 2 mg 12/04/21 13:00 Loperamide 2 Mg Cap PO ONCE PRN give with Hemabate Magnesium Hydroxide 30 ml 12/04/21 13:00 Magnesium Hydroxide (Mom) Oral Liqd Udc PO HS PRN Constipation Misoprostol 800 mcg 12/02/21 14:08 Misoprostol 200 Mcg Tab RI ONCE PRN Uterine Bleeding Misoprostol 800 mcg 12/04/21 13:00 Misoprostol 100 Mcg Tab RI ONCE PRN Uterine Bleeding Misoprostol 800 mcg 12/04/21 13:11 Misoprostol 200 Mcg Tab RI ONCE PRN Uterine Bleeding Multi-Ingredient Ointment 1 applic 12/04/21 13:00 Lanolin/Zinc/Dimethicone (Lansinoh) 7 Gm TP PRN PRN Sore Nipples Multivitamins/Iron/Calcium 1 each 12/05/21 10:00 12/05/21 10:21 [id number] Fumarate-Folic Acid Vit Tab PO 1 each QDAY NEHA Administration Nalbuphine HCl 10 mg 12/04/21 13:11 Nalbuphine 10 Mg/1 Ml Inj IV Q2H PRN Pain, Moderate (4-6) Ondansetron HCl 4 mg 12/02/21 15:00 Ondansetron 4 Mg/2 Ml Inj IV Q8H PRN Nausea And Vomiting Ondansetron HCl 4 mg 12/04/21 13:00 Ondansetron 4 Mg/2 Ml Inj IV Q8H PRN Nausea And Vomiting Oxycodone/Acetaminophen 2 tab 12/04/21 13:00 Oxycodone /Acetaminophen 5-325mg Tab PO Q4H PRN Pain, Moderate (4-6) Oxytocin 10 unit 12/02/21 14:08 Oxytocin 10 Unit/1 Ml Inj IM ONCE PRN Uterine Bleeding Promethazine HCl 25 mg 12/04/21 13:00 Promethazine 25 Mg Rect Supp RI Q6H PRN Nausea And Vomiting Promethazine HCl 25 mg 12/04/21 13:00 Promethazine 25 Mg Tab PO Q6H PRN Nausea And Vomiting Sodium Chloride 10 ml 12/04/21 13:00 Sodium Chloride 0.9% 10 Ml Flush Syringe IV 12/14/21 23:59 PRN NR Witch Kendy/Glycerin 1 each 12/04/21 13:00 Witch Kendy/ Glycerin Pad TP PRN PRN Hemorrhoid/cleansing/soothing
[2021-12-06] MEDS: IBUPROFEN 800 MG TAB PO SCH (04:48)
[2021-12-06] MEDS: DOCUSATE SODIUM 100 MG CAP PO SCH (10:46)
[2021-12-06] MEDS: PRENATAL VIT27-FE FUMARATE-FOLIC ACID VIT TAB PO SCH (10:46)
--- NOTE | 2021-12-06 15:50 | Progress Note ---
Assessment and Plan PPD#2 doing well 1. Routine care Subjective Date of service: 12/06/21 Principal diagnosis: PPD#2 for VAVD Interval history: pt has no complaints and would like to go home. Objective - Constitutional Vitals: Vital Signs - 12hr 12/06/21 12/06/21 04:48 08:47 Temperature 97.9 F Pulse Rate 88 Respiratory 18 18 Rate Blood Pressure 94/58 [Right] O2 Sat by Pulse 99 Oximetry General appearance: Present: no acute distress - Neck Neck: normal ROM - Respiratory Respiratory effort: normal - Breasts Breasts: deferred - Cardiovascular Rhythm: regular Extremities: No edema - Gastrointestinal General gastrointestinal: Present: soft, non-tender - Genitourinary Female genitourinary: other (Fundus firm 1cm below umbilicus, non-tender) - Integumentary Integumentary: warm, dry - Neurologic Neurologic: moves all extremities - Psychiatric Psychiatric: cooperative - Labs CBC & Chem 7: 12/05/21 05:52 Medications & Allergies - Medications Allergies/Adverse Reactions: Allergies nitrofurantoin [From Macrobid] Allergy (Verified 12/02/21 11:45) Rash Home Medications: Home Medications Medication Instructions Recorded Confirmed Last Taken Type Vit No.179/Iron/Folic 1 each PO DAILY 12/02/21 12/02/21 12/01/21 09:00 History [ Tablet] Active Medications: Generic Name Dose Route Start Last Admin Trade Name Freq PRN Reason Stop Dose Admin Acetaminophen 650 mg 12/02/21 15:00 12/04/21 08:50 Acetaminophen 325 Mg Tab PO 650 mg Q4H PRN Administration Pain, Mild (1-3) Acetaminophen 650 mg 12/04/21 13:00 Acetaminophen 325 Mg Tab PO Q4H PRN Pain MILD(1-3)/Fever >100.5/ONTIVEROS Acetaminophen 650 mg 12/04/21 13:11 Acetaminophen 325 Mg Tab PO Q4H PRN Pain, Mild (1-3) Benzocaine/Menthol 1 spray 12/04/21 13:00 Benzocaine/Menthol 20/0.5% Top [place] 56 Gm TP PRN PRN Episiotomy Pain Bisacodyl 10 mg 12/04/21 13:00 Bisacodyl 10 Mg Rect Supp [place] BID PRN Constipation Diphenhydramine HCl 25 mg 12/04/21 13:00 Diphenhydramine 25 Mg Cap PO Q6H PRN Itching Docusate Sodium 100 mg 12/04/21 22:00 12/06/21 10:46 Docusate Sodium 100 Mg Cap PO 100 mg BID NEHA Administration Fentanyl 100 mcg 12/04/21 13:11 Fentanyl 100 Mcg/2 Ml Inj IV Q2H PRN Pain,Severe (7-10) LABOR PAIN Hydrocortisone Acetate 25 mg 12/04/21 13:00 Hydrocortisone 25 Mg Rectal Supp [place] BID PRN Hemorrhoids Lactated Ringer's 1,000 mls @ 125 mls/hr 12/02/21 14:15 12/02/21 19:17 Lactated Ringers IV 125 mls/hr DIRECT NEHA Administration Oxytocin/Sodium Chloride 30 units in 500 mls @ 4 mls/hr 12/03/21 11:19 12/04/21 04:48 Pitocin/Ns 30 Unit/500ml IV 6 ml/hr TITR NEHA 6 mls/hr Titration Protocol Oxytocin/Sodium Chloride 30 units in 500 mls @ 40 mls/hr 12/04/21 13:00 Pitocin/Ns 30 Unit/500ml IV TITR NEHA Protocol Ibuprofen 800 mg 12/04/21 13:00 12/06/21 04:48 Ibuprofen 800 Mg Tab PO Not Given Q6H NEHA Loperamide HCl 2 mg 12/04/21 13:00 Loperamide 2 Mg Cap PO ONCE PRN give with Hemabate Magnesium Hydroxide 30 ml 12/04/21 13:00 Magnesium Hydroxide (Mom) Oral Liqd Udc PO HS PRN Constipation Misoprostol 800 mcg 12/02/21 14:08 Misoprostol 200 Mcg Tab [place] ONCE PRN Uterine Bleeding Misoprostol 800 mcg 12/04/21 13:00 Misoprostol 100 Mcg Tab [place] ONCE PRN Uterine Bleeding Misoprostol 800 mcg 12/04/21 13:11 Misoprostol 200 Mcg Tab [place] ONCE PRN Uterine Bleeding Multi-Ingredient Ointment 1 applic 12/04/21 13:00 Lanolin/Zinc/Dimethicone (Lansinoh) 7 Gm TP PRN PRN Sore Nipples Multivitamins/Iron/Calcium 1 each 12/05/21 10:00 12/06/21 10:46 [id number] Fumarate-Folic Acid Vit Tab PO 1 each QDAY NEHA Administration Nalbuphine HCl 10 mg 12/04/21 13:11 Nalbuphine 10 Mg/1 Ml Inj IV Q2H PRN Pain, Moderate (4-6) Ondansetron HCl 4 mg 12/02/21 15:00 Ondansetron 4 Mg/2 Ml Inj IV Q8H PRN Nausea And Vomiting Ondansetron HCl 4 mg 12/04/21 13:00 Ondansetron 4 Mg/2 Ml Inj IV Q8H PRN Nausea And Vomiting Oxycodone/Acetaminophen 2 tab 12/04/21 13:00 Oxycodone /Acetaminophen 5-325mg Tab PO Q4H PRN Pain, Moderate (4-6) Oxytocin 10 unit 12/02/21 14:08 Oxytocin 10 Unit/1 Ml Inj IM ONCE PRN Uterine Bleeding Promethazine HCl 25 mg 12/04/21 13:00 Promethazine 25 Mg Rect Supp [place] Q6H PRN Nausea And Vomiting Promethazine HCl 25 mg 12/04/21 13:00 Promethazine 25 Mg Tab PO Q6H PRN Nausea And Vomiting Sodium Chloride 10 ml 12/04/21 13:00 Sodium Chloride 0.9% 10 Ml Flush Syringe IV 12/14/21 23:59 PRN NR Witch Kendy/Glycerin 1 each 12/04/21 13:00 Witch Kendy/ Glycerin Pad TP PRN PRN Hemorrhoid/cleansing/soothing
--- NOTE | 2021-12-06 15:51 | Discharge Summary ---
Providers - Providers Date of Admission: 12/02/21 10:05 Attending physician: DANIELLE SANZ Primary care physician: DANIELLE SANZ Hospitalization Reason for admission: IUP at term Delivery: vacuum extraction Episiotomy: mediolateral (right) Laceration: 3rd degree (from extension of episiotomy) complications: none Discharge diagnosis: IUP at term delivered [place] baby: male Hospital course: term admitted post dates and given induction over 4days, pt had vacuum assisted delivery with episiotomy done that extended to 3rd degree laceration and same repaired and pt left comfortable. course uneventful. Condition at discharge: Good Disposition: HOME / SELF CARE / HOMELESS - Discharge Diagnoses (1) Vacuum extractor delivery, delivered Status: Acute (2) Obstetric vaginal laceration with type 3a third degree perineal laceration Status: Acute Plan - Provider Discharge Summary Additional instructions: [] Smoking cessation referral if applicable(refer to patient education folder for contact #) [] Refer to [facility] Booklet Call your doctor immediately for: * Fever > 100.5 * Heavy vaginal bleeding ( >1 pad per hour) * Severe persistent headache * Shortness of breath * Reddened, hot, painful area to leg or breast * Drainage or odor from incision. * Keep incision clean and dry at all times and follow doctor's instructions regarding bathing/showering - Follow up plan Follow up: DANIELLE SANZ MD [Primary Care Provider] - 7 Days
[2021-12-06 20:02] VITALS: BP 111/69
== END 2021-12-06 20:08 | disposition home or self-care (01) | DRG 768 ==
LOC: TRG 10:04 → APU 10:04 → LD 10:05 → OB 12-04 14:54
PROVIDERS: ADMIT Obstetrics & Gynecology; ATTEND Obstetrics & Gynecology
PROC: 0DQR0ZZ Repair Anal Sphincter, Open Approach (ICD-10-PCS; principal; 2021-12-04)
PROC: 10D07Z6 Extraction of Products of Conception, Vacuum, Via Natural or Artificial Opening (ICD-10-PCS; 2021-12-04)
PROC: 3E0P7VZ Introduction of Hormone into Female Reproductive, Via Natural or Artificial Opening (ICD-10-PCS; 2021-12-04)
PROC: 3E0R3BZ Introduction of Anesthetic Agent into Spinal Canal, Percutaneous Approach (ICD-10-PCS; 2021-12-04)
PROC: 00HU33Z Insertion of Infusion Device into Spinal Canal, Percutaneous Approach (ICD-10-PCS; 2021-12-04)
DX: O41.03X0 Oligohydramnios, third trimester, not applicable or unspecified (principal); Z37.0 Single live birth; O70.20 Third degree perineal laceration during delivery, unspecified; Z3A.40 40 weeks gestation of pregnancy; Z20.822 Contact with and (suspected) exposure to COVID-19; O99.62 Diseases of the digestive system complicating childbirth; O77.0 Labor and delivery complicated by meconium in amniotic fluid; O76 Abnormality in fetal heart rate and rhythm complicating labor and delivery
CPT/HCPCS: 36415; 59200; 76815; 76819; 82803; 82805; 85027; 86850; 86900; 86901; 88307; 99211; G0378; J3490; J7502; G0463; J0290; J0595; J1580; J2590; J7120; U0003